=== PATIENT | female | born 1985 | race Caucasian/White ===

== ENCOUNTER 2017-11-26 01:48 | Emergency (ER) | payer OTHER, SELFPAY ==
[2017-11-26] MEDS ORDERED: CEFAZOLIN/SWI 1gm 1 GM/10 ML SYR ONE (02:29)
[2017-11-26] MEDS ORDERED: NA CHLORIDE 0.9% 1,000 ML ONE (02:29)
[2017-11-26] MEDS ORDERED: TETANUS & DIPHTHERIA TOX,ADULT 0.5 ML VIAL ONE (02:29)
[2017-11-26] MEDS ORDERED: FENTANYL CITR 100 MCG/2 ML ONE (02:32)
[2017-11-26 03:08] LABS: Bicarbonate 28 mEq/L (21-31); Glucose Level 96 mg/dL (65-120); Potassium 3.7 mEq/L (3.6-5.0); Sodium Level 136 mEq/L (135-145)
[2017-11-26 03:09] LABS: Absolute Lymphocytes (CBC) 1.3 K/uL (0.7-4.9); Absolute Monocytes 0.5 K/uL (0.1-1.3); Absolute Neutrophil 5.6 K/uL (1.8-8.0); Basophils % 1.2 % (0-1.3); Lymphocytes % 17.7 % (15.3-44.8); MPV 7.9 fL (7.6-11.3); Monocytes % 6.1 % (3.3-12.3)
[2017-11-26 03:10] LABS: BUN Blood Urea Nitrogen 11 mg/dL (6-20)
[2017-11-26 03:26] LABS: Alcohol Serum/Plasma 203 mg/dl
[2017-11-26 03:39] LABS: Urine Bacteria <20 /HPF (<20); Urine Culture Reflex Order NOT NEEDED; Urine RBC NONE SEEN /HPF (NONE SEEN)
[2017-11-26 03:46] LABS: Urine Blood NEGATIVE (NEG); Urine Glucose NEGATIVE (NEG); Urine Protein NEGATIVE (NEG); Urine Specific Gravity <1.005 (1.005-1.030); Urine pH 5.5 (5.0-7.0)
[2017-11-26] MEDS ORDERED: ONDANSETRON 4 MG/2 ML VIAL ONE (04:07)
[2017-11-26] MEDS ORDERED: MORPHINE 4 MG/ML SYR ONE (04:31)
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
== END 2017-11-26 05:59 | disposition home or self-care (01) ==
LOC: ER 01:48
DX: S02.2XXA Fracture of nasal bones, initial encounter for closed fracture (principal); Y04.2XXA Assault by strike against or bumped into by another person, initial encounter; Y93.89 Activity, other specified; Y92.89 Other specified places as the place of occurrence of the external cause; Z23 Encounter for immunization; Z72.0 Tobacco use; Z88.3 Allergy status to other anti-infective agents
CPT/HCPCS: 36415; 70450; 70486; 71260; 72125; 74177; 76377; 80048; 80320; 81003; 81015; 85025; 86850; 86900; 86901; 90714; 96361; 96365; 96375; 99284; J0690; J2405; J3010; J7030; Q9967

== ENCOUNTER 2019-07-20 17:59 | Emergency (ER) | payer OTHER ==
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
--- NOTE | 2019-07-20 20:20 | ER ---
Nurse's Notes [facility] Name: Jeny Morales Age: 34 yrs Sex: Female : 1985 Arrival Date: 07/20/2019 Time: 18:00 Bed 15 Private MD: Diagnosis: Dizziness and giddiness Presentation: 07/20 18:47 Presenting complaint: Patient states: generalized tiredness, shortness of breath, now sr5 nausea x several weeks. Pt concerned about a found carbon monoxide leak in her home. Equal unlabored resp, skin warm/dry/nc in triage. Transition of care: patient was not received from another setting of care. Onset of symptoms was June 23, 2019. Risk Assessment: Do you want to hurt yourself or someone else? Patient reports no desire to harm self or others. Initial Sepsis Screen: Does the patient meet any 2 criteria? No. Patient's initial sepsis screen is negative. Care prior to arrival: None. 18:47 Method Of Arrival: Ambulatory sr5 18:47 Acuity: MAUREEN 4 sr5 19:17 Initial Sepsis Screen: Does the patient have a suspected source of infection? No. wh Patient's initial sepsis screen is negative. Triage Assessment: 18:49 General: Appears in no apparent distress. Behavior is calm, cooperative. Pain: sr5 Complains of pain in chest "Feels like acid reflux". Neuro: Level of Consciousness is awake, alert, obeys commands, Oriented to person, place, time. Neuro: Reports dizziness, upon standing. Cardiovascular: Patient's skin is warm and dry. Respiratory: Respiratory effort is even, unlabored, Respiratory pattern is regular, symmetrical. 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 - Social history:: Smoking status: Patient/guardian denies using tobacco. - Ebola Screening: : Patient negative for fever greater than or equal to 101.5 degrees Fahrenheit, and additional compatible Ebola Virus Disease symptoms Patient denies exposure to infectious person. Screenin:16 Abuse screen: Denies threats or abuse. Denies injuries from another. Nutritional wh screening: No deficits noted. Tuberculosis screening: No symptoms or risk factors identified. Fall Risk None identified. Assessment: 19:16 General: Appears in no apparent distress. Behavior is calm, cooperative, appropriate wh for age. Pain: Denies pain. Neuro: Level of Consciousness is awake, alert, obeys commands, Oriented to person, place, time, situation, Appropriate for age. Cardiovascular: Heart tones S1 S2. Respiratory: Airway is patent Respiratory effort is even, unlabored, Respiratory pattern is regular, symmetrical, Breath sounds are clear bilaterally. GI: Abdomen is flat, non-distended, Reports nausea. : No signs and/or symptoms were reported regarding the genitourinary system. EENT: No signs and/or symptoms were reported regarding the EENT system. Derm: Skin is intact, is healthy with good turgor, Skin is pink, warm \\T\\ dry. normal. Musculoskeletal: Circulation, motion, and sensation intact. 20:35 Reassessment: Patient appears in no apparent distress at this time. No changes from previously documented assessment. Patient and/or family updated on plan of care and expected duration. Pain level reassessed. Patient is alert, oriented x 3, equal unlabored respirations, skin warm/dry/pink. Vital Signs: 18:49 BP 112 / 85; Pulse 67; Resp 14; Temp 98.4; Pulse Ox 100% ; Weight 68.04 kg; Height 5 sr5 ft. 9 in. (175.26 cm); Pain 8/10; 19:15 BP 111 / 76; Pulse 53; Resp 18; Pulse Ox 99% on R/A; wh 20:35 BP 102 / 74; Pulse 51; Resp 18; Pulse Ox 100% on R/A; wh 18:49 Body Mass Index 22.15 (68.04 kg, 175.26 cm) sr5 ED Course: 18:00 Patient arrived in ED. as 18:48 Triage completed. sr5 18:49 Arm band placed on. sr5 18:51 [facility]C [facility] la1 18:51 Jj Bass MD is Attending Physician. la1 19:01 Fabien Agiular is Primary Nurse. wh 19:17 Patient has correct armband on for positive identification. Bed in low position. Call light in reach. Side rails up X 1. Pulse ox on. NIBP on. 19:49 Chest Pa And Lat (2 Views) XRAY In Process Unspecified. EDMS 20:32 No provider procedures requiring assistance completed. Patient did not have IV access during this emergency room visit. Administered Medications: No medications were administered Outcome: 20:19 Discharge ordered by . ana 20:32 Discharged to home ambulatory. wh 20:32 Condition: stable 20:32 Discharge instructions given to patient, Instructed on discharge instructions, follow up and referral plans. POC Demonstrated understanding of instructions, follow-up care, POC 20:36 Patient left the ED. Signatures: Dispatcher [employer] Belkis Nunn Lee, CONSERVATION PLANNER-C CONSERVATION PLANNER-Cla1 Quinton Ruano, RN RN sr5 Fabien Aguilar
--- NOTE | 2019-07-20 20:21 | EDPHYS ---
Physician Documentation [facility] Name: Jeny Morales Age: 34 yrs Sex: Female : 1985 Arrival Date: 07/20/2019 Time: 18:00 Bed 15 Private MD: ED Physician Jj Bass HPI: 07/20 19:19 This 34 yrs old Female presents to ER via Ambulatory with complaints of Gas la1 Exposure. 19:19 Pt reports for the last 2 months she has been smelling what she assumed was a gas leak la1 but unable to locate, 2 days ago the lead was located in the plumbing and the pipes were shut off. Pt reports she had been having nausea, dizziness, headaches, and anxiety at home, states symptoms are some better after pipes where turned off. Onset: The symptoms/episode began/occurred 2 month(s) ago. Severity of symptoms: At their worst the symptoms were mild in the emergency department the symptoms have improved. The patient has not recently seen a physician. 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 - Social history:: Smoking status: Patient/guardian denies using tobacco. - Ebola Screening: : Patient negative for fever greater than or equal to 101.5 degrees Fahrenheit, and additional compatible Ebola Virus Disease symptoms Patient denies exposure to infectious person. ROS: 19:21 Constitutional: Negative for fever, chills, and weight loss, Eyes: Negative for injury, la1 pain, redness, and discharge, ENT: Negative for injury, pain, and discharge, Neck: Negative for injury, pain, and swelling. 19:21 Cardiovascular: Negative for chest pain, palpitations, and edema, Respiratory: Negative for shortness of breath, cough, wheezing, and pleuritic chest pain, Abdomen/GI: Negative for abdominal pain, nausea, vomiting, diarrhea, and constipation, Back: Negative for injury and pain, : Negative for injury, bleeding, discharge, and swelling, MS/Extremity: Negative for injury and deformity, Skin: Negative for injury, rash, and discoloration. 19:21 Cardiovascular: 19:21 Neuro: Positive for dizziness, headache, anxiety. Exam: 19:21 Constitutional: This is a well developed, well nourished patient who is awake, alert, la1 and in no acute distress. Head/Face: Normocephalic, atraumatic. Eyes: Pupils equal round and reactive to light, extra-ocular motions intact. Periorbital areas with no swelling, redness, or edema. ENT: . Mucous membranes moist. Neck: Trachea midline, no thyromegaly or masses palpated, and no cervical lymphadenopathy. Supple, full range of motion without nuchal rigidity, or vertebral point tenderness. No Meningismus. Chest/axilla: Normal chest wall appearance and motion. Nontender with no deformity. No lesions are appreciated. Cardiovascular: Regular rate and rhythm with a normal S1 and S2. No gallops, murmurs, or rubs. Normal PMI, no JVD. No pulse deficits. Respiratory: Lungs have equal breath sounds bilaterally, clear to auscultation. No rales, rhonchi or wheezes noted. No increased work of breathing, no retractions or nasal flaring. Skin: Warm, dry with normal turgor. Normal color with no rashes, no lesions, and no evidence of cellulitis. MS/ Extremity: Pulses equal, no cyanosis. Neurovascular intact. Full, normal range of motion. Neuro: Awake and alert, GCS 15, oriented to person, place, time, and situation. Normal gait. Psych: Awake, alert, with orientation to person, place and time. Behavior, mood, and affect are within normal limits. Vital Signs: 18:49 BP 112 / 85; Pulse 67; Resp 14; Temp 98.4; Pulse Ox 100% ; Weight 68.04 kg; Height 5 sr5 ft. 9 in. (175.26 cm); Pain 8/10; 19:15 BP 111 / 76; Pulse 53; Resp 18; Pulse Ox 99% on R/A; wh 20:35 BP 102 / 74; Pulse 51; Resp 18; Pulse Ox 100% on R/A; wh 18:49 Body Mass Index 22.15 (68.04 kg, 175.26 cm) sr5 MDM: 18:51 Patient medically screened. la1 20:18 Data reviewed: vital signs, nurses notes, radiologic studies, I have discussed the la1 patient's presentation/case with the attending Emergency Department Physician; and as a result, I will discharge patient. Data interpreted: Pulse oximetry: on room air. Test interpretation: by ED physician or midlevel provider: plain radiologic studies. Counseling: I had a detailed discussion with the patient and/or guardian regarding: the historical points, exam findings, and any diagnostic results supporting the discharge/admit diagnosis, the presence of at least one elevated blood pressure reading (>120/80) during this emergency department visit, radiology results, the need for outpatient follow up, a family practitioner, to return to the emergency department if symptoms worsen or persist or if there are any questions or concerns that arise at home. Special discussion: Based on the patient's history, exam, and Dx evaluation, there is no indication for emergent intervention or inpatient Tx. It is understood by the patient/guardian that if the Sx's persist or worsen they need to return immediately for re-evaluation. I discussed with the patient/guardian that the patient's current presentation does not indicate dosing of antibiotics. They should follow-up with their primary care provider and return if the symptoms persist or progress. 07/20 19:10 Order name: Chest Pa And Lat (2 Views) XRAY; Complete Time: 20:17 la1 Administered Medications: No medications were administered Disposition: 07/20/19 20:19 Discharged to Home. Impression: Dizziness and giddiness. - Condition is Stable. - Discharge Instructions: Dizziness, General Headache Without Cause, General Headache Without Cause, [id number], Generalized Anxiety Disorder. - Medication Reconciliation Form, Thank You Letter form. - Follow up: Private Physician; When: 2 - 3 days; Reason: Recheck today's complaints, Re-evaluation by your physician. - Problem is new. - Symptoms have improved. Addendum: 07/29/2019 09:12 Co-signature as Attending Physician, Jj Bass MD I agree with the assessment and c rowe plan of care. Signatures: Dispatcher [employer] Jj Delgado MD MD cha Attema, Lee, REMEDY DEVELOPER-C REMEDY DEVELOPER-Cla1 Quinton Ruano, RN RN sr5 Fabien Aguilar Corrections: (The following items were deleted from the chart) 07/20 20:36 20:19 07/20/2019 20:19 Discharged to Home. Impression: Dizziness and giddiness. wh Condition is Stable. Forms are Medication Reconciliation Form, Thank You Letter, Antibiotic Education, Prescription Opioid Use. Follow up: Private Physician; When: 2 - 3 days; Reason: Recheck today's complaints, Re-evaluation by your physician. Problem is new. Symptoms have improved. la1
[2019-07-20 20:53] VITALS: TEMP 98.4
[2019-07-20 20:56] VITALS: BP 102/74; O2SAT 100
== END 2019-07-20 20:36 | disposition home or self-care (01) ==
LOC: ER 17:59
DX: R42 Dizziness and giddiness (principal); F90.9 Attention-deficit hyperactivity disorder, unspecified type; Z88.1 Allergy status to other antibiotic agents
CPT/HCPCS: 71046; 99283